=== PATIENT | female | born 1995 | race American Indian/Alaskan Native ===

== ENCOUNTER 2022-06-03 04:50 | Inpatient (IN) | payer OTHER ==
[2022-06-03] MEDS ORDERED: METHYLERGONOVINE MALEATE 0.2 MG/ML VIAL IM ONE (05:15)
[2022-06-03] MEDS ORDERED: miSOPROStol 200 MCG TAB ONE (05:15)
--- NOTE | 2022-06-03 05:24 | Emergency Department Report ---
ED HPI - General Stated complaint: GAVE IN CAR Time Seen by Provider: 06/03/22 05:07 - History of Present Illness Initial comments: I got a call to Ms Mathias's a 26 years old F on the hallway as she was been wheeled into the room after delivering a baby boy in the car right in front of the ED. Baby still attached to the mother and the placenta. Baby stimulated and able to cry. He was placed on mother's chest and allowed to latch to her mother breast for feeding. She denies any sob or chest pain or palpitation. No other modifying or associated factors reported. - Related Data Home Medications Medication Instructions Recorded Confirmed Last Taken No Known Home Medications [No 06/03/22 06/03/22 Unknown Reported Home Medications] Allergies Allergy/AdvReac Type Severity Reaction Status Date / Time No Known Allergies Allergy Verified 06/03/22 06:22 ED Review of Systems ROS: Stated complaint: GAVE IN CAR Other details as noted in HPI Comment: All other systems reviewed and negative Gastrointestinal: abdominal pain, nausea Genitourinary: other (pelvic pain ) ED Past Medical Hx - Medications Home Medications: Home Medications Medication Instructions Recorded Confirmed Last Taken Type No Known Home Medications [No 06/03/22 06/03/22 Unknown History Reported Home Medications] ED Physical Exam - General Limitations: Physical Limitation General appearance: alert, in distress (due to pelvic pain ) - ENT ENT exam: Present: normal exam, normal orophraynx, mucous membranes moist - Neck Neck exam: Present: normal inspection, full ROM. Absent: tenderness - Respiratory Respiratory exam: Present: normal lung sounds bilaterally. Absent: respiratory distress, accessory muscle use - Cardiovascular Cardiovascular Exam: Present: regular rate, normal rhythm, normal heart sounds - GI/Abdominal GI/Abdominal exam: Present: soft, tenderness (suprapubic tenderness ), normal bowel sounds. Absent: distended - External exam: Present: bleeding (noted ) Bi-manual exam: Present: uterine tenderness (with placental cord connected to the baby ) - Extremities Exam Extremities exam: Present: normal inspection, pedal edema (+1 bilateral pitting edema ) - Back Exam Back exam: Absent: tenderness - Neurological Exam Neurological exam: Present: alert, oriented X3 - Psychiatric Psychiatric exam: Present: agitated, anxious - Skin Skin exam: Present: warm, normal color ED Course Vital Signs 06/03/22 06/03/22 06/03/22 05:38 05:43 05:48 Pulse Rate 72 78 80 Blood Pressure O2 Sat by Pulse 98 100 99 Oximetry 06/03/22 06/03/22 06/03/22 05:49 05:53 05:58 Pulse Rate 75 81 82 Blood Pressure 143/74 O2 Sat by Pulse 99 99 Oximetry 06/03/22 06/03/22 06/03/22 06:03 06:08 06:09 Pulse Rate 90 71 73 Blood Pressure 142/87 O2 Sat by Pulse 98 100 Oximetry 06/03/22 06:13 Pulse Rate 81 Blood Pressure O2 Sat by Pulse 99 Oximetry ED Medical Decision Making - Lab Data Result diagrams: 06/03/22 16:03 - Medical Decision Making Labor and delivery of bouncing baby boy-- baby stimulated and cries, baby cord cut between the two clamps with minimal bleeding--windows server architect and L & D paged stat and patient taken to the L&D for placental delivery considering the possibility of uterine atony--no Pitocin available in the [facility]. Critical care attestation.: If time is entered above; I have spent that time in minutes in the direct care of this critically ill patient, excluding procedure time. ED Disposition Clinical Impression: Delivery normal, , delivered Disposition: 01 HOME / SELF CARE / HOMELESS Is pt being admited?: No Does the pt Need Aspirin: No Condition: Stable
[2022-06-03] MEDS ORDERED: LIDOCAINE (2%) 20 MG/1 ML VIAL 20 ML MDV INFILTRATI ONE (05:31)
[2022-06-03] MEDS ORDERED: OXYTOCIN DRIP 30,000 MILLIUNITS/500 ML BAG IV ONE (05:32)
[2022-06-03] MEDS ORDERED: LANOLIN/ZINC/DIMETHICONE (LANSINOH) 7 GM TP PRN (05:34)
[2022-06-03] MEDS ORDERED: WITCH HAZEL/ GLYCERIN PAD TP PRN (05:34)
[2022-06-03] MEDS ORDERED: HYDROcodone/ACETAMINOPHEN 5-325 MG TAB PO PRN (05:34)
[2022-06-03] MEDS ORDERED: BENZOCAINE/MENTHOL 20/0.5% TOP SPRAY 56 GM TP PRN (05:34)
[2022-06-03] MEDS ORDERED: MAGNESIUM HYDROXIDE (MOM) ORAL LIQD UDC PO PRN (05:34)
[2022-06-03] MEDS ORDERED: ACETAMINOPHEN 325 MG TAB PO PRN (05:34)
--- NOTE | 2022-06-03 05:41 | Event Note ---
Date: 06/03/22 This patient is a 26-year-old G2 (now) P2002 who was at 39-6/7 weeks gestation who delivered a term in her motor vehicle outside of [facility] emergency department. It was a term weighing 4035 g. The patient was taken to the emergency department. The umbilical cord was clamped and cut in the emergency department. Placenta was still within the patient. She was brought to labor and delivery. I delivered this patient's placenta. There was a first-degree perineal laceration noted. I handed off thi s case to Dr. Oriana Lorenzo who performed the repair and manage this patient thereafter.
[2022-06-03] MEDS ORDERED: KETOROLAC 30 MG/1 ML INJ IV ONE (05:48)
--- NOTE | 2022-06-03 05:54 | History and Physical Report ---
History of Present Illness Date of examination: 06/03/22 Date of admission: 06/03/22 05:30 Chief complaint: I delivered at home History of present illness: Pt is a 26 year old -[place] female 06/04/22 at 39w6d who presents after delivery at home. She reports having contractions since 2 am, but reported contractions were initially iregular. However she felt the urge to push and delivered her baby at home. She was brought by EMS to the Emergency De partment, then transferred to the labor and delivery unit. The placenta was delivered by Dr Moreno while enterprise applications manager provider was en-route as the patient noted the urge to push. She has had care at [facility] since 20 wks complicated by late entry to care at 20 wks, and genital herpes without lesion or prodrome. She is GBS negative. 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 Family/Genetic History: diabetes, hypertension, cancer Social history: no significant social history - Obstetrical History Expected Date of Delivery: 06/04/22 Actual Gestation: 39 Week(s) 6 Day(s) : 2 Para: 1 Hx # Term Pregnancies: 1 Number of Pregnancies: 0 Spontaneous Abortions: 0 Induced : 0 Number of Living Children: 1 Medications and Allergies Allergies Allergy/AdvReac Type Severity Reaction Status Date / Time No Known Allergies Allergy Unverified 06/03/22 05:56 Home Medications Medication Instructions Recorded Confirmed Last Taken Type No Known Home Medications [No 06/03/22 06/03/22 Unknown History Reported Home Medications] Active Meds: Active Medications Acetaminophen (Acetaminophen 325 Mg Tab) 650 mg PO Q4H PRN PRN Reason: Pain MILD(1-3)/Fever >100.5/LOAIZA Hydrocodone Bitart/Acetaminophen (Hydrocodone/Acetaminophen 5-325 Mg Tab) 2 each PO Q6H PRN PRN Reason: Pain, Moderate (4-6) Benzocaine/Menthol (Benzocaine/Menthol 20/0.5% Top [place] 56 Gm) 1 spray TP PRN PRN PRN Reason: Episiotomy Pain Ibuprofen (Ibuprofen 800 Mg Tab) 800 mg PO Q6H [place] Ketorolac Tromethamine (Ketorolac 30 Mg/1 Ml Inj) 15 mg IV ONCE ONE Stop: 06/03/22 05:49 Magnesium Hydroxide (Magnesium Hydroxide (Mom) Oral Liqd Udc) 30 ml PO HS PRN PRN Reason: Constipation Multi-Ingredient Ointment (Lanolin/Zinc/Dimethicone (Lansinoh) 7 Gm) 1 applic TP PRN PRN PRN Reason: Sore Nipples Sodium Chloride (Sodium Chloride 0.9% 10 Ml Flush Syringe) 10 ml IV PRN NR Witch Liz/Glycerin (Witch Liz/ Glycerin Pad) 1 each TP PRN PRN PRN Reason: Hemorrhoid/cleansing/soothing Review of Systems All systems: negative - Vital Signs Vital signs: Vital Signs Pulse Pulse Ox 72 98 06/03/22 05:38 06/03/22 05:38 Temp Pulse Resp BP Pulse Ox 75 143/74 99 06/03/22 05:49 06/03/22 05:49 06/03/22 05:48 - Physical Exam Breasts: Positive: deferred Abdomen: Positive: soft (gravid ) Uterus: Positive: enlarged (gravid ) Extremities: Positive: edema (1+) Results All other labs normal. Assessment and Plan A: IUP at 39w6d s/p at home Genital Herpes without lesion or prodrome GBS Negative P: Admit to labor and delivery Routine care Continue to monitor clinical status
--- NOTE | 2022-06-03 06:25 | Procedure Note ---
OB Delivery Note - Delivery Date of Delivery: 06/03/22 Surgeon: JUDITH CARTER Estimated blood loss: other (Unwitnessed delivery, unsure EBL) - Vaginal Delivery presentation: vertex Intrapartum events: precipitous labor- <3hr Delivery induction: none Delivery monitor: none Route of delivery: Delivery placenta: spontaneous Episiotomy: none Delivery laceration: 1st degree (hemostatic, well-approximating without repair ) Anesthesia: none - A Infant Gender: Male (4035g @ 0400 am)
[2022-06-03 07:34] LABS: Basophils % (Auto) 0.3 % (0.0-1.8); Eosinophils % (Auto) 0.3 % (0.0-4.3); Hematocrit 37.5 % (30.3-42.9); Hemoglobin 12.1 gm/dl (10.1-14.3); Lymphocytes # (Auto) 1.3 K/mm3 (1.2-5.4); Lymphocytes % (Auto) 13.7 % (13.4-35.0); Mean Corpuscular HGB Conc 32 % (30-34); Mean Corpuscular Volume 90 fl (79-97); Monocytes # (Auto) 0.6 K/mm3 (0.0-0.8); Monocytes % (Auto) 6.5 % (0.0-7.3); Platelet Count 218 K/mm3 (140-440); Red Blood Count 4.14 M/mm3 (3.65-5.03); Red Cell Distribution Width 17.2 % (13.2-15.2)
[2022-06-03] MEDS: IBUPROFEN 800 MG TAB PO SCH ×2 (08:49→12:52)
[2022-06-03 17:00] LABS: Hematocrit 34.6 % (30.3-42.9); Hemoglobin 11.7 gm/dl (10.1-14.3)
--- NOTE | 2022-06-04 07:18 | Progress Note ---
Assessment and Plan - Patient Problems (1) , delivered Current Visit: Yes Status: Acute Plan to address problem: Patient doing well Discharge home Subjective - Subjective Date of service: 06/04/22 Interval history: Patient is currently without complaints. She is experiencing mild cramping. Otherwise her pain is well controlled Patient reports: appetite normal, voiding normally, pain well controlled [place] doing well Objective - Vital Signs Latest vital signs: Vital Signs Temp Pulse Resp BP BP Pulse Ox 06/04/22 00:36 98.2 F 78 20 119/52 97 06/03/22 16:01 98.4 F 62 16 118/61 99 06/03/22 12:18 98.3 F 66 16 109/59 98 06/03/22 08:25 97.8 F 69 18 120/68 100 06/03/22 07:50 97.8 F 90 24 145/87 99 06/03/22 07:29 71 108/61 06/03/22 07:27 75 99 06/03/22 07:22 75 100 Intake and Output 06/03/22 06/04/22 06/04/22 22:59 06:59 14:59 Intake Total 200 240 Output Total 400 Balance -200 240 Intake: Oral 200 240 Output: Urine 400 Void 400 Other: Total, Intake Amount 200 240 Total, Output Amount 400 # Voids Void 1 - Exam Uterus: Present: normal, firm - Labs Labs: Abnormal lab results 06/03/22 Range/Units 07:05 RDW 17.2 H (13.2-15.2) % Seg Neutrophils % 79.2 H (40.0-70.0) %
--- NOTE | 2022-06-04 07:19 | Discharge Summary ---
Providers - Providers Date of Admission: 06/03/22 05:30 Date of discharge: 06/04/22 Attending physician: JUDITH CARTER 06/03/22 08:55 Consult to Case Management [CONS] Routine Services Needed at Discharge: Other Notified:: yes Comment:: home delivery; limited PNC Primary care physician: JUDITH CARTER Hospitalization Reason for admission: active labor Delivery: Discharge diagnosis: IUP at term delivered Hospital course: Patient underwent a precipitous delivery with delivery of the placenta by the on-call physician. She had a liveborn male infant. Her course was uneventful. Condition at discharge: Good Disposition: HOME / SELF CARE / HOMELESS - Discharge Diagnoses (1) , delivered Status: Acute Plan - Discharge Medications Prescriptions: Ibuprofen [Motrin] 800 mg PO Q8HR PRN #30 tablet PRN Reason: Pain , Severe (7-10) HYDROcodone/APAP 5-325 [[place] 5/325] 1 each PO Q6HR PRN #15 tablet PRN Reason: Pain - Provider Discharge Summary Activity: no sex for 6 weeks, no heavy lifting 4 weeks, no strenuous exercise Diet: routine Instructions: routine Additional instructions: [] Smoking cessation referral if applicable(refer to patient education folder for contact #) [] Refer to [facility] Booklet Call your doctor immediately for: * Fever > 100.5 * Heavy vaginal bleeding ( >1 pad per hour) * Severe persistent headache * Shortness of breath * Reddened, hot, painful area to leg or breast * Schedule a visit in 4-week - Follow up plan
[2022-06-04 08:52] VITALS: BP 106/62
== END 2022-06-04 15:35 | disposition home or self-care (01) | DRG 776 ==
LOC: ED 04:50 → LD 05:30 → OB 08:25
PROVIDERS: ADMIT Obstetrics & Gynecology; ATTEND Obstetrics & Gynecology
PROC: 10E0XZZ Delivery of Products of Conception, External Approach (ICD-10-PCS; principal; 2022-06-03)
DX: Z39.0 Encounter for care and examination of mother immediately after delivery (principal); Z20.822 Contact with and (suspected) exposure to COVID-19; O70.0 First degree perineal laceration during delivery
CPT/HCPCS: 36415; 85014; 85018; 85025; 86850; 86900; 86901; G0378; J3490; J2210; J2590; U0003